=== PATIENT | male | born 1955 | race Caucasian/White ===

== ENCOUNTER 2025-04-29 11:12 | Emergency (ER) | payer BC, SELFPAY ==
[2025-04-29 11:21] VITALS: BP 144/68
--- NOTE | 2025-04-29 12:39 | ED.GENMED ---
History of Present Illness
General
Chief Complaint: Skin Surface Trauma
Source: patient
Exam Limitations: none
Time Seen by Provider: 04/29/25 12:01
History of Present Illness
History of Present Illness:
69yo right hand dominant male presenting for evaluation of a right wrist laceration. Patient was taking out the trash when he got his hand caught on the trash can causing a laceration. Injury occurred about 1 hour prior to arrival. No
paresthesias. Unknown last Tdap.
Past History
Social History
Tobacco: Non-smoker
Alcohol: None
Personal:
Living: with family
Phy Exam
General Physical Exam
General Presentation: well appearing and no apparent distress
General age: appears stated age
General Skin: warm and dry
General Habitus: normal
General Mental: alert
ENT Exam
ENT Exam: normocephalic
Pulmonary Exam
Pulmonary Exam: no respiratory distress
Musculoskeletal Exam
Musculoskeletal Exam: other (Approx 3cm curved laceration to the R thenar eminence through dermal layer. Active bleeding to medial aspect of wound. No bony tenderness. ROM intact. 2+ radial pulse.)
Skin Exam
Skin Exam: warm/dry
Psychiatric Exam
Psychiatric Exam: normal mood/affect
Course
Orders/Labs/Results
Orders:
Orders
04/29/25 12:37
Tetanus/Diphth/Acelpertussis [Adacel] 0.5 ml IM .ONCE ONE
Vital Signs
Initial and Last Documented VS:
Initial Vital Signs
Temp Pulse Resp BP Pulse Ox
98.0 F 84 16 144/68 98
04/29/25 11:21 04/29/25 11:21 04/29/25 11:21 04/29/25 11:21 04/29/25 11:21
Last Documented Vital Signs
Temp Pulse Resp BP Pulse Ox
98.0 F 84 16 144/68 98
04/29/25 11:21 04/29/25 11:21 04/29/25 11:21 04/29/25 11:21 04/29/25 11:21
Procedures
Laceration Closure
Right Hand:
Status of Wound: clean
Size of Wound in cm: 3
Description of Wound Edges: flap-well vascularized
Preparation: cleaned with saline
Anesthesia: 1% Lidocaine with epi
Wound exploration: explored to base- no FB
Type of Closure: single layer closure
Skin Closure Material: 4-0 nylon
Number of sutures: 5
MDM/Problems Addressed
Differential Diagnosis Includes:
69yoM here with a R hand/wrist laceration. There is 3cm curved laceration to the thenar eminence with active bleeding. Wound cleaned and repaired as above. The medial aspect of the laceration had an avulsed area of skin with active bleeding. Sutures
and Surgicel placed with hemostasis. Tdap updated. Home wound care discussed. Patient instructed to have sutures removed in 10-14 days. Advised return to the ED with any signs of infection or uncontrolled bleeding. He was discharged in stable
condition.
*Critical Care Note
Total Time (30-74mins, 75-104mins- exclusive of procedures): Not Applicable
ED Attending Note
-
Portions of this chart may have been created with voice recognition software.� Occasional wrong word or��sound alike� substitutions may have occurred due to the inherent limitations of voice recognition software.
Discharge Plan
Departure
Patient Disposition: Home (Routine Discharge)
Date of Disposition: 04/29/25
Time of Disposition: 12:41
Patient with high blood pressure during this ER visit?: Yes
Discharge Problem:
Laceration of right wrist
Instructions: Laceration Repair With Stitches (DC)
Prescriptions:
No Action
metoprolol succinate 25 mg Tablet Extended Release 24 Hr
12.5 mg PO QPM
multivitamin Tablet
1 tab PO DAILY
omeprazole 20 mg Capsule,Delayed Release(Dr/Ec)
20 mg PO QPM
Glucosamine Chondroitin 550-30-1 mg Capsule
1 cap PO BID
Franklin Gummie
1 gum PO BID
Turmeric Gummie
1 gum PO BID
Activity Restrictions/Additional Instructions:
Leave Surgicel (bottom dressing) in place for 2-3 days. Keep wound clean and dry.
Sutures need to be removed in 10-14 days. Return to the ER with any signs of infection or uncontrolled bleeding.
Interventions
Interventions:
*Risk Screen - Suicide Last Done: 04/29/25 11:21
*Neglect/Abuse Screening Last Done: 04/29/25 11:21
*Nursing Disposition Last Done: 04/29/25 13:04
ED-Skin Assessment Last Done: 04/29/25 12:19
Discharge Date and Time
Discharge Date/Time: 04/29/25 13:04
Print Language: PERSIAN
[2025-04-29] MEDS: ADACEL 0.5 ML IM (12:54)
== END 2025-04-29 13:04 | disposition home or self-care (01) ==
LOC: EMR 11:12
PROVIDERS: EMERGENCY PHYSICIAN Emergency Medicine; FAMILY PHYSICIAN Family Medicine
DX: S61.511A Laceration without foreign body of right wrist, initial encounter (principal); W23.0XXA Caught, crushed, jammed, or pinched between moving objects, initial encounter; Z23 Encounter for immunization
CPT/HCPCS: 12002; 90471; 99282; 90715